=== PATIENT | female | born 1950 | race Caucasian/White ===

== ENCOUNTER → 2024-02-14 07:59 | Outpatient (REF) | payer SELFPAY | LOC: RCS 07:59 | PROVIDERS: ATTENDING PHYSICIAN Internal Medicine Cardiovascular Disease | DX: I10 Essential (primary) hypertension (principal); R94.31 Abnormal electrocardiogram [ECG] [EKG]; Z01.818 Encounter for other preprocedural examination | CPT/HCPCS: 93306 ==

== ENCOUNTER → 2024-02-29 08:00 | Outpatient (REF) | payer MEDICAID, SELFPAY ==
[2024-02-29] MEDS: LEXISCAN 0.4 MG IV (08:38)
[2024-02-29] MEDS: FLUSH (NSS) 1 FLUSH IV (08:39)
[2024-02-29] MEDS: AMINOPHYLLINE 75 MG IV (08:48)
== END ==
LOC: RCS 08:00
PROVIDERS: ATTENDING PHYSICIAN Internal Medicine Cardiovascular Disease
DX: I10 Essential (primary) hypertension (principal); Z01.818 Encounter for other preprocedural examination; R94.31 Abnormal electrocardiogram [ECG] [EKG]
CPT/HCPCS: 93017; J2785